=== PATIENT | male | born 1990 | race Caucasian/White ===

== ENCOUNTER → 2019-12-28 | Outpatient (CLI) | payer OTHER ==
--- NOTE | 2019-12-28 15:46 | MR ---
EXAMINATION TYPE: MR brain/orbits wo/w con DATE OF EXAM: 12/28/2019 COMPARISON: NONE HISTORY: Pressure in rt eye, episode of rt eye blindness Sep 2019 TECHNIQUE: Multiplanar, multisequence images of the brain and brainstem is performed without and with IV contras t, utilizing 6.5 mL intravenous Gadavist . Some sequences repeated due to patient motion. The study i s mildly limited by patient motion. FINDINGS: Diffusion weighted images demonstrate no evidence of a recent infarct or other diffusion ab normality. There is no extra-axial fluid collection or significant white matter signal abnormality. The ventricular system and cisternal spaces are normal in size and appearance. The brain volume is age appropriate. Midline structures demonstrate normal morphology. Pituitary is nonenlarged and does not impress upon the optic chiasm. The craniocervical junction appears within normal limits. Post contrast images dem onstrate no abnormal enhancement. The dural venous sinuses appear patent. The visualized sinuses demo nstrate a left-sided matt bullosa, scant mucosal thickening of the left maxillary sinus and mild mu cosal thickening of the sphenoid and ethmoid sinuses. Visualized frontal sinuses are well aerated. Sc ant amount of fluid in the right mastoid air cells. The globes are symmetric and lenses are in place. Extraocular muscles are also symmetric without thic kening throughout nor at the myotendinous junctions. There is no abnormal enhancement of the optic ne rves. No intraconal or extraconal mass is seen. No dilation of the superior ophthalmic veins. T2-weig hted imaging demonstrates no abnormal amount of perineural fluid/subarachnoid fluid around the optic nerves. The adjacent carotid arteries are unremarkable without aneurysm. Pituitary does not have mass effect on the optic chiasm. IMPRESSION: 1. No MR abnormality of the right orbit is seen. No MR abnormality of the optic nerves. Ophthalmologi c exam recommended if not already performed. 2. No acute infarct, midline shift or mass effect. No abnormal intracranial enhancement. No significa nt white matter change. 3. Overall mild pansinusitis involving the maxillary, sphenoid, ethmoid sinuses. Scant amount of flui d in the right mastoid air cells. Correlate with point tenderness to exclude mastoiditis.
== END | disposition home or self-care (01) ==
LOC: RADMRIMAIN 10:52
PROVIDERS: ATTEND Ophthalmology
DX: J32.4 Chronic pansinusitis (principal); H54.7 Unspecified visual loss
CPT/HCPCS: 70543; 70553; A9585